=== PATIENT | female | born 1935 | race Caucasian/White ===

== ENCOUNTER 2019-08-15 22:01 | Inpatient (IN) | payer OTHER ==
[~2019-08-15] VITALS: Ht 167.6 cm; Wt 83.0 kg
[~2019-08-15 22:01] MED LIST: AMLODIPINE BESY10 MG PO; ASPIRIN EC81 M1 PO; CRESTOR20 MG PO; FISH OIL 1,001000 M3 PO; HYDROC; LISINOPRIL40 MG PO; TOPROL XL100 MG PO; VIT B COMPLEX; VITAMIN C1000 MG PO
[2019-08-15 22:03] VITALS: BP 138/51
[2019-08-16] MEDS ORDERED: TRAMADOL 50 MG50 MG PO (01:02)
[2019-08-16 02:17] LABS: HEMATOCRIT 36.9 % (37.0-47.0); HEMOGLOBIN 12.1 gm/dL (12.0-15.0); MCH 30.7 pg (26.0-34.0); MCHC 32.9 g/dL (28.0-37.0); MCV 93.5 fL (80.0-100.0); RBC 3.95 mil/uL (4.20-5.00); RDW 13.4 % (10.5-14.5); WBC 7.2 thou/uL (4.0-11.0)
[2019-08-16 02:22] LABS: CALCIUM 9.1 mg/dL (8.5-10.1); CREATININE 1.2 mg/dL (0.6-1.0); POTASSIUM 4.3 mmol/L (3.5-5.1)
[2019-08-16 02:28] LABS: ALBUMIN 4.2 g/dL (3.4-5.0); TOTAL BILIRUBIN 0.2 mg/dL (<0.1-1.0); TOTAL PROTEIN 7.7 g/dL (6.4-8.2)
[2019-08-16 02:34] VITALS: BP 143/65
[2019-08-16 02:43] VITALS: BP 143/65
[2019-08-16 03:01] VITALS: BP 141/58
--- NOTE | 2019-08-16 04:29 | NUR ---
ASSUMED CARE OF PT AT 0255HRS FROM THE ED. PT IS AOX4 AND WAS ABLE TO ANSWER ALL ADMISSION RELATED QUESTIONS. PT WAS ORIENTED TO THE UNIT AND THE ROOM. FALL PRECAUTONS IN PLACE. PT REPORTED SOME PAIN AND WAS TREATED WITH PRN PAIN MEDS. ORDERS STARTED. ASSESSMENT CHARTED. CALL LIGHT WITHIN REACH. VSS AND NO S/S OF ACUTE DISTRESS. PT WAS ABLE TO GET COMFORTABLE AND SLEEP PART OF THE SHIFT. WILL CONTINUE TO MONITOR.
[2019-08-16 07:43] VITALS: BP 128/51
--- NOTE | 2019-08-16 08:56 | EKG ---
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[id number] Requested By: Kp Lizarraga Order Number: [id number] MD: Viraj Monique Measurements Intervals [place] Rate: 73 P: 56 IL: 158 QRS: -21 QRSD: 93 T: 23 QT: 415 QTc: 458 Interpretive Statements Sinus rhythm Borderline left axis deviation Abnormal R-wave progression, late transition Baseline wander in lead(s) V2 Compared to ECG 01/31/2012 08:01:54 Sinus bradycardia no longer present Electronically Signed On 08-16-2019 8:56:31 TRAVEL WRITER by Viraj Monique [email or web address] <ELECTRONICALLY SIGNED> By: Viraj Monique MD, [facility] 08/16/19 0856 [id number] Viraj Monique MD, [facility] /EPI
[2019-08-16] MEDS ORDERED: NEURONTIN100 MG PO (12:12)
[2019-08-16 14:57] VITALS: BP 101/64
--- NOTE | 2019-08-16 16:32 | NUR ---
PT ADMITTED RELATED TO FALL, WEAKNESS; FX OF R FIBULA, CLOSED. CM REVIEWED CHART AND SPOKE WITH CARE TEAM. CM MET WITH PT AND SPOUSE AT BEDSIDE THIS DAY. PT IS A&O X4. CM ROLE INTRODCUED. PT INDICATED SHE LIVES IN A [place] WITH HER SPOUSE WITH 1 STEP TO ENTER THROUGH GARAGE. PT INDICATED SHE USED A CANE TO ASSIST OUTSIDE WITH MOBILITY. PT INDICATED SHE HAD BEEN INDEPDENENT WITH [facility] DENTAL TECH. PT HAD BEEN SKILLED AT [employer] IN THE PAST. PT IS [facility] IN [facility]. PT WAS ISSUED A FWW FOR DC THROUGH [facility]. CM TO ARRANGE HOME HEALTH SERVICES FOR DC HOME TOMORROW.
[2019-08-16 19:13] VITALS: BP 141/47
--- NOTE | 2019-08-16 19:27 | NUR ---
PT ALERT AND ORIENTED X4. UP WITH WALKER AND ASSISTANCE X1. ORTHO HERE THIS AM AND PT RELEASED TO WBAT TO RIGHT LE IN CAM WALKER BOOT. PHYSICAL THERAPY WORKING WITH PT. UP TO CHAIR FOR MOST OF THE DAY TODAY. PT'S BROUGHT HOME MED LIST AND LIST UPDATED IN COMPUTER. PROGRESSING TOWARDS GOALS PER PLAN OF CARE.
--- NOTE | 2019-08-17 06:37 | NUR ---
Assessment completed. pt a&ox4. ambulates with 1 assist and a walker with a gaitbelt. no complaint of pain overnight. pt rested well with a few bathroom interruptions. pt slept with camp boot on, pt stated that she feels comfortable leaving it on due to her frequent bathroom trips. boot was unwrapped and assessed. v/s atable. no s/s distress. will cont to monitor
[2019-08-17 08:00] VITALS: BP 155/66
[2019-08-17] MEDS ORDERED: CALCIUM 600 +1 EA13 PO (09:29)
[2019-08-17] MEDS ORDERED: PERCOCET PO (09:34)
--- NOTE | 2019-08-17 10:12 | NUR ---
DISCHARGE PLANNING. DISCHARGE PLAN IS TO HOME WITH HOME HEALTH SERVICES. PATIENT REFERRAL FAXED TO [facility] PER REQUEST. CALL PLACED TO [facility]. SPOKE WITH LEATHA, ACCEPTING OF PATIENT AT DISCHARGE. LEATHA TO FACILITATE PATIENTS HH NEEDS ONCE DC/HH ORDERS OBTAINED. FOLLOWING.
[2019-08-17 12:43] VITALS: BP 155/66
--- NOTE | 2019-08-17 12:47 | NUR ---
CARE TEAM INDICATED THAT PT IS MEDICALLY STABLE TO DISCHARGE HOME THIS DAY. PT IS TO HAVE [facility] HEALTH PT, OT, AND NURSING. PT WAS ISSUED A FWW BY [facility]. PT'S SPOUSE IS TO PROVIDE TRANSPORT HOME. NO OTHER CM INTERVENTION INDICATED. CASE CLOSED.
[2019-08-17 16:07] VITALS: BP 155/66
--- NOTE | 2019-08-17 21:08 | NUR ---
Received awake on bed. Due medications given as prescribed, able to swallow meds w/o difficulty. A+Ox4. On room air. Vital signs stable. With ecchymosis at R eye- Dr lorenzo. Complained of pain, due PRN pain meds given as prescribed. On heart healthy diet- tolerated well; no nausea, no vomiting and no abdominal pain noted. Standby assist going to the bathroom. With cam boot at R ankle. With NS at 80cc/hr infusing well at L FA. Able to use walker and gait belt going to the bathroom. Pt complained that her thumb is painful and swollen- Dr Edwards informed and ordered Xray-done. Pt seen by Dr Edwards- Discharge orders made. Discharge instructions, follow up schedule and prescription given to patient. Relayed to Dr Edwards Hand xray results- pt can go home. IV discontinued. confirmed with CM that HH is already set up, as per LUCIAN Pena, HH is set up already, pt can leave. Pt sent home with her personal belongings via wheelchair, fetched by her .
== END 2019-08-17 16:17 | disposition home health service (06) | DRG 563 ==
LOC: ER 22:01 → EROBS 08-16 01:30 → 4W 08-16 01:30 → ENTRNSPT 08-17 15:04 → EDTRNSPTSTS 08-17 15:48 → 4W 08-17 16:17
PROVIDERS: Emergency Medicine; ADMIT Hospitalist
PROC: 2W3QX1Z Immobilization of Right Lower Leg using Splint (ICD-10-PCS; principal; 2019-08-16)
DX: S82.831A Other fracture of upper and lower end of right fibula, initial encounter for closed fracture (principal); N17.9 Acute kidney failure, unspecified; F10.129 Alcohol abuse with intoxication, unspecified; S00.11XA Contusion of right eyelid and periocular area, initial encounter; Y90.0 Blood alcohol level of less than 20 mg/100 ml; R73.03 Prediabetes; G62.9 Polyneuropathy, unspecified; E78.5 Hyperlipidemia, unspecified; I12.9 Hypertensive chronic kidney disease with stage 1 through stage 4 chronic kidney disease, or unspecified chronic kidney disease; N18.3 Chronic kidney disease, stage 3 (moderate); R29.6 Repeated falls; Z90.710 Acquired absence of both cervix and uterus; Z90.722 Acquired absence of ovaries, bilateral; Z90.49 Acquired absence of other specified parts of digestive tract; Z88.8 Allergy status to other drugs, medicaments and biological substances; Z47.89 Encounter for other orthopedic aftercare; W01.0XXA Fall on same level from slipping, tripping and stumbling without subsequent striking against object, initial encounter; Y93.89 Activity, other specified; Y92.89 Other specified places as the place of occurrence of the external cause; Y99.8 Other external cause status
CPT/HCPCS: 10040

== ENCOUNTER 2021-10-18 19:17 | Emergency (ER) | payer OTHER ==
[~2021-10-18] VITALS: Ht 167.6 cm; Wt 74.8 kg
[~2021-10-18 19:17] MED LIST changes: +CALCIUM 600 +1 EA13 PO; +NEURONTIN100 MG PO; +PERCOCET PO; +TRAMADOL 50 MG50 MG PO
[2021-10-18 20:56] VITALS: BP 149/44
== END 2021-10-18 21:17 | disposition home or self-care (01) ==
LOC: ER 19:17
DX: S09.8XXA Other specified injuries of head, initial encounter (principal); R06.00 Dyspnea, unspecified; M54.59 Other low back pain; I10 Essential (primary) hypertension; Z90.89 Acquired absence of other organs; Z90.710 Acquired absence of both cervix and uterus; Z98.51 Tubal ligation status; Z88.8 Allergy status to other drugs, medicaments and biological substances; W01.0XXA Fall on same level from slipping, tripping and stumbling without subsequent striking against object, initial encounter; Y93.89 Activity, other specified; Y92.89 Other specified places as the place of occurrence of the external cause; Y99.8 Other external cause status